=== PATIENT | female | born 1985 | race Asian ===

== ENCOUNTER 2017-05-11 23:25 | Emergency (ER) | payer MEDICAID ==
[~2017-05-11] VITALS: Ht 165.1 cm; Wt 112.2 kg
[~2017-05-11 23:25] MED LIST: HYDR-3138 PO; LEVO750T26 PO; PAIN MED PO
[2017-05-12 00:45] VITALS: BP 146/83
== END 2017-05-12 00:51 | disposition home or self-care (01) ==
LOC: ED 05-12 00:03
DX: S46.011A Strain of muscle(s) and tendon(s) of the rotator cuff of right shoulder, initial encounter (principal); X58.XXXA Exposure to other specified factors, initial encounter; Y93.89 Activity, other specified; Y99.8 Other external cause status; Y92.89 Other specified places as the place of occurrence of the external cause
CPT/HCPCS: 99283

== ENCOUNTER 2017-07-31 23:34 | Emergency (ER) | payer MEDICAID ==
[~2017-07-31] VITALS: Ht 162.6 cm; Wt 112.3 kg
[~2017-07-31 23:34] MED LIST changes: -HYDR-3138 PO; +HYDR-3237 PO
[2017-07-31 23:36] VITALS: BP 129/84
== END 2017-08-01 01:24 | disposition home or self-care (01) ==
LOC: ED 08-01 01:14
DX: M25.532 Pain in left wrist (principal)
CPT/HCPCS: 99284